=== PATIENT | male | born 1995 | race Caucasian/White ===

== ENCOUNTER → 2021-01-14 17:23 | Outpatient (CLI) | payer BC, SELFPAY ==
[2021-01-14 18:14] LABS: Basophils % 0.5 % (0.1-2.0); Eosinophils # 0.1 K/mm3 (0.0-0.4); Eosinophils % 1.3 % (0.1-12.0); Hematocrit 44.5 % (42.0-52.0); Hemoglobin 14.6 g/dL (14.1-18.0); Lymphocytes % 26.2 % (10-50); Mean Corpuscular HGB Conc 32.9 g/dL (31.8-35.4); Mean Corpuscular Hemoglobin 28.6 pg (27.0-31.2); Mean Corpuscular Volume 86.9 fl (80-94); Mean Platelet Volume 9.3 fl (7.4-10.4); Monocytes # 0.5 K/mm3 (0.1-1.0); Monocytes % 6.8 % (1.7-9.3); Neutrophils % 65.2 % (37.0-80.0); Platelet Count 359 K/mm3 (142-424); Red Blood Count 5.12 M/mm3 (4.60-6.20); Red Cell Distribution Width 13.7 % (11.5-17.5); White Blood Count 7.6 K/mm3 (4.8-10.8)
[2021-01-14 19:57] LABS: Alanine Aminotransferase 49 U/L (12-78); Albumin Level 4.4 g/dl (3.5-5.0); Albumin/Globulin Ratio 1.4 (1.1-1.8); Alkaline Phosphatase 48 U/L (38-126); Anion Gap 14.2 mEq/L (5-15); Aspartate Amino Transferase 54 U/L (17-59); Bilirubin,Total 0.7 mg/dl (0.2-1.3); Blood Urea Nitrogen 17 mg/dl (9-20); Carbon Dioxide 22 mmol/L (22.0-30.0); Chloride 107 mmol/L (98-107); Chol/HDL Ratio 7.6 (1-3.5); Cholesterol 168 mg/dl (140-200); Estimated Glomerular Filt Rate 90 ml/min (>60); GFR (African American) 108 ML/MIN (>60); Globulin 3.2 g/dL (1.3-3.2); Glucose 79 mg/dl (74-100); HDL Cholesterol 22 mg/dl (40-60); Potassium 5.2 mmoL/L (3.5-5.1); Sodium 138 mmol/L (136-145); Total Protein,Serum 7.6 g/dl (6.3-8.2); Triglycerides 58 mg/dl (30-150); VLDL Cholesterol 12 mg/dL (0-40)
[2021-01-14 20:07] LABS: Direct LDL Cholesterol 131.07 mg/dL (100-129)
[2021-01-14 20:11] LABS: 25-OH Vitamin D, Total 30.9 ng/mL (30-100)
[2021-01-14 20:27] LABS: Thyroid Stimulating Hormone 1.08 uIU/mL (0.465-4.68)
== END ==
PROVIDERS: Visit Provider Nurse Practitioner Family
DX: Z00.00 Encounter for general adult medical examination without abnormal findings (principal); E66.3 Overweight; Z68.31 Body mass index [BMI] 31.0-31.9, adult
CPT/HCPCS: 80053; 80061; 82306; 84443; 85025

== ENCOUNTER → 2021-09-12 16:41 | Outpatient (CLI) | payer BC, SELFPAY ==
[2021-09-12 16:37] LABS: Amphetamine/Metha Screen,Urine Negative ng/ml (<1000)
[2021-09-12 16:38] LABS: Barbiturates Screen,Urine Negative ng/ml (<200); Benzodiazepines Screen,Urine Negative ng/ml (<200)
[2021-09-12 16:39] LABS: Cannabinoid Screen,Urine Negative ng/ml (<50); Cocaine Screen,Urine Negative ng/ml (<300)
[2021-09-12 16:40] LABS: Methadone Screen,Urine Negative ng/ml (<300)
[2021-09-12 16:41] LABS: Opiate Screen,Urine Negative ng/ml (<300); Phencyclidine Screen,Urine Negative ng/ml (<25)
== END ==
PROVIDERS: Visit Provider Emergency Medicine
DX: F90.9 Attention-deficit hyperactivity disorder, unspecified type (principal)
CPT/HCPCS: 80305

== ENCOUNTER → 2021-10-20 16:49 | Outpatient (CLI) | payer BC, SELFPAY ==
[2021-10-20 18:00] LABS: Basophils # 0.1 K/mm3 (0-0.2); Basophils % 1.9 % (0.1-2.0); Eosinophils # 0.1 K/mm3 (0.0-0.4); Eosinophils % 0.9 % (0.1-12.0); Hematocrit 44.5 % (42.0-52.0); Hemoglobin 15.4 g/dL (14.1-18.0); Lymphocytes # 1.5 K/mm3 (0.7-4.5); Lymphocytes % 22.6 % (10-50); Mean Corpuscular HGB Conc 34.5 g/dL (31.8-35.4); Mean Corpuscular Hemoglobin 28.9 pg (27.0-31.2); Mean Corpuscular Volume 83.7 fl (80-94); Mean Platelet Volume 7.5 fl (7.4-10.4); Monocytes # 0.3 K/mm3 (0.1-1.0); Monocytes % 4.6 % (1.7-9.3); Neutrophils # 4.6 K/mm3 (1.8-7.8); Platelet Count 289 K/mm3 (142-424); Red Blood Count 5.31 M/mm3 (4.60-6.20); Red Cell Distribution Width 13.2 % (11.5-17.5); White Blood Count 6.6 K/mm3 (4.8-10.8)
[2021-10-20 18:06] LABS: Alanine Aminotransferase 24 U/L (12-78); Albumin/Globulin Ratio 1.9 (1.1-1.8); Alkaline Phosphatase 48 U/L (38-126); Aspartate Amino Transferase 24 U/L (17-59); Bilirubin,Total 0.6 mg/dl (0.2-1.3); Blood Urea Nitrogen 10 mg/dl (9-20); Calcium 9.7 mg/dl (8.4-10.2); Carbon Dioxide 24 mmol/L (22.0-30.0); Chloride 104 mmol/L (98-107); Chol/HDL Ratio 4.3 (1-3.5); Cholesterol 186 mg/dl (140-200); Estimated Glomerular Filt Rate 89 ml/min (>60); GFR (African American) 108 ML/MIN (>60); Globulin 2.7 g/dL (1.3-3.2); Glucose 95 mg/dl (74-100); HDL Cholesterol 43 mg/dl (40-60); Sodium 139 mmol/L (136-145); Total Protein,Serum 7.7 g/dl (6.3-8.2); Triglycerides 93 mg/dl (30-150); VLDL Cholesterol 19 mg/dL (0-40)
[2021-10-20 18:18] LABS: Direct LDL Cholesterol 100.45 mg/dL (100-129)
[2021-10-20 18:24] LABS: 25-OH Vitamin D, Total 26.6 ng/mL (30-100)
[2021-10-20 18:39] LABS: Thyroid Stimulating Hormone 1.04 uIU/mL (0.465-4.68)
[2021-10-20 18:58] LABS: Vitamin B12 713 pg/mL (239-931)
== END ==
PROVIDERS: PCP Physician Assistant; Visit Provider Physician Assistant
DX: Z00.00 Encounter for general adult medical examination without abnormal findings (principal); Z79.899 Other long term (current) drug therapy
CPT/HCPCS: 80053; 80061; 82306; 82607; 84443; 85025

== ENCOUNTER → 2022-02-21 15:21 | Outpatient (CLI) | payer BC, SELFPAY ==
[2022-02-23 10:17] LABS: Testosterone,Total 255 ng/dL (264-916)
== END ==
PROVIDERS: PCP Physician Assistant; Visit Provider Physician Assistant
DX: R68.82 Decreased libido (principal)
CPT/HCPCS: 84403

== ENCOUNTER → 2022-02-28 14:56 | Outpatient (CLI) | payer BC, SELFPAY ==
[2022-03-02 08:52] LABS: Testosterone,Total 214 ng/dL (264-916)
== END ==
PROVIDERS: PCP Physician Assistant; Visit Provider Physician Assistant
DX: E29.1 Testicular hypofunction (principal)
CPT/HCPCS: 84403